=== PATIENT | female | born 1955 | race Asian ===

== ENCOUNTER 2023-02-27 08:19 | Emergency (ER) | payer OTHER ==
[~2023-02-27] VITALS: Ht 155.6 cm; Wt 64.1 kg
[2023-02-27 08:26] VITALS: TEMP 98.5
[2023-02-27] MEDS ORDERED: metoclopramide 5 mg/ml inj IV ONE (09:00)
[2023-02-27] MEDS ORDERED: acetaminophen 325mg tablet PO ONE (09:00)
[2023-02-27] MEDS ORDERED: normal saline 1000ML IV soln IVB ONE (09:00)
[2023-02-27] MEDS ORDERED: famotidine/PF IV inj 40 MG in normal saline 100ml IV soln 100 ML IV ONE (09:20)
[2023-02-27 09:49] LABS: BASOPHILS % (AUTO) 0.2 % (0-1); EOSINOPHILS % (AUTO) 0 % (0-6); HEMATOCRIT 41.8 % (35.0-45.0); LYMPHOCYTES # (AUTO) 0.9 X10'3 (1.1-4.8); MEAN CORPUSCULAR HEMOGLOBIN 30.4 PG (27.0-31.0); MEAN CORPUSCULAR HGB CONC 33.5 g/dL (33.0-36.5); MEAN CORPUSCULAR VOLUME 90.6 FL (78-98); MEAN PLATELET VOLUME 7.3 FL (7.4-10.4); MONOCYTES # (AUTO) 0.2 X10'3 (0-0.9); MONOCYTES % (AUTO) 1.9 % (2-12); NEUTROPHILS # (AUTO) 7.7 X10'3 (1.8-7.7); NEUTROPHILS % (AUTO) 87.9 % (42-75); PLATELET COUNT 245 X10'3 (140-440); RED BLOOD COUNT 4.61 X10'6 (4.20-5.60); WHITE BLOOD COUNT 8.7 X10'3 (4.5-11.0)
[2023-02-27 10:04] LABS: ALANINE AMINOTRANSFERASE 27 U/L (12-78); ALBUMIN 4.1 G/DL (3.4-5.0); ALBUMIN/GLOBULIN RATIO 1.2 (1.1-1.5); ALKALINE PHOSPHATASE 82 IU/L (46-116); ANION GAP 12 (8-16); ASPARTATE AMINO TRANSFERASE 20 U/L (10-37); BILIRUBIN,TOTAL 0.5 MG/DL (0.1-1.0); BLOOD UREA NITROGEN 15 MG/DL (7-18); BUN/CREATININE RATIO 27.3 (10.0-20.0); CALCIUM 9.3 MG/DL (8.5-10.1); CHLORIDE 104 MMOL/L (99-107); CREATININE 0.55 MG/DL (0.40-0.90); GLUCOSE 149 MG/DL (70-104); POTASSIUM 3.8 MMOL/L (3.5-5.1); SODIUM 139 MMOL/L (135-145); TOTAL CARBON DIOXIDE 23.4 MMOL/L (24-32); TOTAL PROTEIN 7.6 G/DL (6.4-8.2); eGFR > 90 ML/MIN
--- NOTE | 2023-02-27 12:28 | NUR ---
MRI SCREENING FORM COMPLETED AND FAXED TO MRI.
--- NOTE | 2023-02-27 12:36 | NUR ---
PT REQ IBUPROFEN. PER DR ESPINOZA RN MAY GIVE 2 MG MORPHINE AND 4 OF ZOFRAN BUT SHOULD NOT GIVE IBUPROFEN. PT REFUSED MORPHINE AND ZOFRAN AT THIS TIME. RN WILL CONT TO MONITOR.
--- NOTE | 2023-02-27 12:40 | NUR ---
PT TAKEN TO MRI.
[2023-02-27] MEDS ORDERED: iohexol 350MG/ML 100ml bottle IV ONE (13:07)
--- NOTE | 2023-02-27 13:16 | NUR ---
PT TAKEN TO CT.
[2023-02-27] MEDS ORDERED: aspirin 81mg tab.chew PO ONE (14:45)
--- NOTE | 2023-02-27 15:29 | NUR ---
RN GAVE REPORT TO DAVID SALAZAR WITH [facility] WHO WILL [facility] PER MARTIN HE WILL CALL BACK IF THE PT IS ACCEPTED.
--- NOTE | 2023-02-27 16:05 | NUR ---
PER MARTIN WITH [facility] PT WAS NOT ACCEPTED AT [facility] D/T [facility]. RN NOTIFIED DR MITCHELL. PER DR PAULA SALAZAR SHOULD TRY TO GET PT ACCEPTED AT [facility] IN [place]. PER MARTIN HE WILL CALL US BACK AND LET US KNOW IF PT IS ACCEPTED.
[2023-02-27] MEDS ORDERED: MANNITOL 20% IV ONE (17:50)
--- NOTE | 2023-02-27 18:03 | NUR ---
RN CALLED [facility] AND THEY WILL PREPARE MANNITOL AND DELIVER IT TO ED.
--- NOTE | 2023-02-27 18:04 | NUR ---
PER DR MITCHELL RN TO PLACE SMITH AND USE LIDOCAINE. RN WILL ENTER ORD.
[2023-02-27] MEDS ORDERED: LIDOcaine 2% 10ml TOPICAL JELLY (Urojet) TP ONE (18:05)
--- NOTE | 2023-02-27 18:25 | NUR ---
RN SPOKE WITH DAVID WITH [facility] AND PROVIDED REPORT. ADVISED PT WILL NEED IV PUMP FOR MANNITOL AND PT SHOULD HAVE SMITH. PER DAVID THEY WILL CALL US BACK WITH ETA IN 10 MINS AND PT SHOULD BE TRANSFERRED BY [facility].
[2023-02-27] MEDS ORDERED: LidoCAINE 2% Topical Jelly 11mL syringe TOP ONE ×2 (18:50→18:55)
[2023-02-27] MEDS: mannitol 20% 500ml IV soln 500 ML IV ONE ×2 (19:00→19:23)
--- NOTE | 2023-02-27 19:58 | NUR ---
report called to rn of [facility] icu [id number] stuart.
[2023-02-27 20:29] VITALS: BP 157/87; PULSE 81; RESP 18; O2SAT 96
--- NOTE | 2023-02-27 21:04 | NUR ---
PT PICKED UP FOR AIR LIFT
== END 2023-02-27 21:11 | disposition short-term general hospital (02) ==
LOC: ER 08:20
DX: I63.542 Cerebral infarction due to unspecified occlusion or stenosis of left cerebellar artery (principal); Z88.0 Allergy status to penicillin; Z88.5 Allergy status to narcotic agent; Z88.8 Allergy status to other drugs, medicaments and biological substances; Z79.899 Other long term (current) drug therapy
CPT/HCPCS: 36415; 70450; 70496; 70498; 70551; 80053; 85025; 96361; 96365; 96366; 96375; 99291; J2765; J3490; J7030; Q9967; 99284; A4314